=== PATIENT | female | born 1965 | race Caucasian/White ===

== ENCOUNTER 2017-07-30 11:06 | Emergency (ER) | payer BC, OTHER ==
[~2017-07-30] VITALS: Ht 162.6 cm; Wt 79.2 kg
[~2017-07-30 11:06] MED LIST: ALPR-475 PO; ASPI81TA50 PO; CALC1CAP8 PO; ESCI20TA10 PO; FISH1CAP PO; LEVO112T4 PO; MECO10002 PO; OXYC5CAP2 PO
[2017-07-30 11:14] VITALS: BP 129/85
[2017-07-30] MEDS ORDERED: MICROFIBRILLAR COLLAGEN 1 GM TP ONE (11:42)
[2017-07-30] MEDS ORDERED: HYDROcodone/APAP 5/325 TABLET ONE (11:51)
[2017-07-30] MEDS ORDERED: HYDROcodone/APAP 5/325 TABLET PO ONE (12:00)
[2017-07-30] MEDS ORDERED: MICROFIBRILLAR COLLAGEN 0.5GM/PACK TP ONE (12:00)
== END 2017-07-30 12:44 | disposition home or self-care (01) ==
LOC: ED 12:30
DX: S61.215A Laceration without foreign body of left ring finger without damage to nail, initial encounter (principal); F17.200 Nicotine dependence, unspecified, uncomplicated; W26.0XXA Contact with knife, initial encounter; Y93.89 Activity, other specified; Y92.89 Other specified places as the place of occurrence of the external cause; Y99.8 Other external cause status
CPT/HCPCS: 99283

== ENCOUNTER 2018-02-12 19:16 | Emergency (ER) | payer BC ==
[~2018-02-12] VITALS: Ht 162.6 cm; Wt 75.0 kg
[2018-02-12] MEDS ORDERED: MORPHINE SULFATE 4 MG/ML, 1ML ONE ×2 (19:51→20:24)
[2018-02-12] MEDS ORDERED: FAMOTIDINE 20 MG/2 ML ONE (19:51)
[2018-02-12] MEDS: MORPHINE SULFATE 4 MG/ML, 1ML IVPush PRN ×2 (19:56→20:27)
[2018-02-12] MEDS ORDERED: OMNIPAQUE 350 MG/ML, 100ML BOTTLE ONE (20:00)
[2018-02-12] MEDS ORDERED: FAMOTIDINE 20 MG/2 ML IVP ONE (20:00)
[2018-02-12] MEDS ORDERED: SODIUM CHLORIDE FLUSH 10ML SYR IVF ONE (20:00)
[2018-02-12] MEDS ORDERED: ONDANSETRON ODT 4 MG PO ONE (20:00)
[2018-02-12] MEDS ORDERED: ONDANSETRON ODT 4 MG ONE (20:06)
[2018-02-12 20:18] LABS: ALANINE AMINOTRANSFERASE 22 U/L (12-78); ALBUMIN 3.9 g/dL (3.4-5.0); ANION GAP 6 mmol/L (5-15); CALCIUM 8.7 mg/dL (8.5-10.1); CHLORIDE 110 mmol/L (98-107); CREATININE 0.81 mg/dL (0.55-1.02)
[2018-02-12 20:21] LABS: ALKALINE PHOSPHATASE 76 U/L (45-117); BILIRUBIN,TOTAL 0.4 mg/dL (0.2-1.0); TOTAL PROTEIN 7.4 g/dL (6.4-8.2)
[2018-02-12 20:23] LABS: BASOPHILS # (AUTO) 0.05 x10^3/uL (0-0.1); BASOPHILS % (AUTO) 1 % (0-1); EOSINOPHILS # (AUTO) 0.16 x10^3/uL (0-0.4); EOSINOPHILS % (AUTO) 2 % (1-7); LYMPHOCYTES # (AUTO) 2.19 x10^3/uL (1-3.4); LYMPHOCYTES % (AUTO) 25 % (22-44); MD NO; MEAN CORPUSCULAR HEMOGLOBIN 32.5 pg (27.0-34.8); MEAN CORPUSCULAR HGB CONC 34.7 g/dL (32.4-35.8); MEAN CORPUSCULAR VOLUME 93.5 fL (80-100); MONOCYTES % (AUTO) 8 % (2-9); NEUTROPHILS # (AUTO) 5.77 x10^3/uL (1.8-6.8); NEUTROPHILS % (AUTO) 65 % (42-75); PLATELET COUNT 281 x10^3/uL (130-400); RED BLOOD COUNT 4.52 x10^6/uL (3.82-5.3)
[2018-02-12 20:23] LABS: CULTURE INDICATED? YES; MICROSCOPIC INDICATED
[2018-02-12] MEDS ORDERED: CEFTRIAXONE PMX 1GM/50ML 50 ML ONE (21:07)
[2018-02-12 21:12] VITALS: BP 120/71
[2018-02-12] MEDS ORDERED: CEFTRIAXONE 1,000 MG IV ONE (21:30)
== END 2018-02-12 21:34 | disposition home or self-care (01) ==
LOC: ED 20:01
DX: N30.00 Acute cystitis without hematuria (principal)
CPT/HCPCS: 36415; 74177; 80053; 81001; 83690; 85025; 87086; 96365; 96375; 96376; 99285; J0696; Q0162; Q9967; S0028; 87186

== ENCOUNTER 2018-12-05 16:05 | Outpatient (CLI) | payer BC | END 2018-12-05 23:59 | disposition home or self-care (01) | LOC: STAR 16:05 | PROVIDERS: ATTEND Neurological Surgery | DX: Z01.818 Encounter for other preprocedural examination (principal); M47.812 Spondylosis without myelopathy or radiculopathy, cervical region | CPT/HCPCS: 36415; 71046; 80053; 81001; 85025; 85610; 85730; 87086; 93005 ==

== ENCOUNTER 2019-07-22 14:07 | Emergency (ER) | payer BC, OTHER ==
[~2019-07-22] VITALS: Ht 162.6 cm; Wt 63.2 kg
[~2019-07-22 14:07] MED LIST changes: -ALPR-475 PO; +ALPR0.5T7 PO; +CYCL5TAB PO; +HYDR-36 PO; +IBAN3DIS2 INJ; +TIZA2CAP2 PO
[2019-07-22] MEDS ORDERED: LIDOCAINE-MPF 1%, 5ML ONE (14:39)
--- NOTE | 2019-07-22 14:55 | NUR ---
REPORT TO ARNAUD GARZA.
[2019-07-22] MEDS ORDERED: LIDOCAINE-MPF 1%, 5ML INFIL ONE (15:00)
--- NOTE | 2019-07-22 15:00 | NUR ---
REPORT FROM ARNAUD GRANT. AWAITING LAC REPAIR.
[2019-07-22] MEDS ORDERED: ACETAMINOPHEN 325 MG TABLET ONE (15:08)
[2019-07-22] MEDS ORDERED: ACETAMINOPHEN 325 MG TABLET PO ONE (15:30)
--- NOTE | 2019-07-22 15:47 | NUR ---
PT AMBULATES WELL TO BATHROOM INDEPENDENTLY.
[2019-07-22] MEDS ORDERED: NEOSPORIN OINT. PKT 1 PACKET ONE (16:01)
[2019-07-22] MEDS ORDERED: DIPH,PERTUSS(ACELL),TET VAC/PF 0.5 ML IM-VACC ONE (16:01)
[2019-07-22 16:08] VITALS: BP 119/81
== END 2019-07-22 16:11 | disposition home or self-care (01) ==
LOC: ED 15:00
DX: S01.111A Laceration without foreign body of right eyelid and periocular area, initial encounter (principal); S09.90XA Unspecified injury of head, initial encounter; X58.XXXA Exposure to other specified factors, initial encounter; Y93.89 Activity, other specified; Y92.098 Other place in other non-institutional residence as the place of occurrence of the external cause; Y99.8 Other external cause status
CPT/HCPCS: 12011; 99283

== ENCOUNTER 2019-12-20 19:32 | Emergency (ER) | payer BC, OTHER ==
[~2019-12-20] VITALS: Ht 162.6 cm; Wt 64.0 kg
[~2019-12-20 19:32] MED LIST changes: +HYDR-3246 PO; -HYDR-36 PO
[2019-12-20 20:30] LABS: MICROSCOPIC NOT IND
[2019-12-20] MEDS ORDERED: MORPHINE SULFATE 4 MG/ML, 1ML ONE (20:45)
[2019-12-20] MEDS ORDERED: ONDANSETRON 2MG/ML, 2ML ONE (20:45)
[2019-12-20] MEDS ORDERED: SODIUM CHLORIDE FLUSH 10ML SYR IVF ONE (21:00)
[2019-12-20] MEDS ORDERED: ONDANSETRON 2MG/ML, 2ML IVPush ONE (21:00)
[2019-12-20] MEDS ORDERED: MORPHINE SULFATE 4 MG/ML, 1ML IVPush PRN (21:00)
[2019-12-20 21:04] LABS: BASOPHILS # (AUTO) 0.04 x10^3/uL (0-0.1); BASOPHILS % (AUTO) 1 % (0-1); EOSINOPHILS # (AUTO) 0.09 x10^3/uL (0-0.4); EOSINOPHILS % (AUTO) 2 % (1-7); LYMPHOCYTES # (AUTO) 1.81 x10^3/uL (1-3.4); LYMPHOCYTES % (AUTO) 35 % (22-44); MD NO; MEAN CORPUSCULAR HEMOGLOBIN 32.4 pg (27.0-34.8); MEAN CORPUSCULAR HGB CONC 33.8 g/dL (32.4-35.8); MEAN PLATELET VOLUME 8.5 fL (7.4-10.4); MONOCYTES # (AUTO) 0.44 x10^3/uL (0.2-0.8); MONOCYTES % (AUTO) 9 % (2-9); NEUTROPHILS # (AUTO) 2.81 x10^3/uL (1.8-6.8); NEUTROPHILS % (AUTO) 54 % (42-75); PLATELET COUNT 219 x10^3/uL (130-400); RED BLOOD COUNT 4.26 x10^6/uL (3.82-5.3); RED CELL DISTRIBUTION WIDTH 12.4 % (9.6-15.2)
[2019-12-20 21:15] LABS: ALANINE AMINOTRANSFERASE 40 U/L (12-78); ALBUMIN 3.7 g/dL (3.4-5.0); ANION GAP 7 mmol/L (5-15); CALCIUM 8.4 mg/dL (8.5-10.1); CHLORIDE 106 mmol/L (98-107); CREATININE 0.67 mg/dL (0.55-1.02)
[2019-12-20 21:18] LABS: ALKALINE PHOSPHATASE 43 U/L (45-117); BILIRUBIN,TOTAL 0.6 mg/dL (0.2-1.0); TOTAL PROTEIN 6.9 g/dL (6.4-8.2)
[2019-12-20 22:15] VITALS: BP 131/78
== END 2019-12-20 22:53 | disposition home or self-care (01) ==
LOC: ED 20:09
DX: R10.31 Right lower quadrant pain (principal); Z86.39 Personal history of other endocrine, nutritional and metabolic disease; Z87.891 Personal history of nicotine dependence
CPT/HCPCS: 36415; 74176; 80053; 81003; 85025; 96374; 96375; 99284; J2270; J2405

== ENCOUNTER 2019-12-28 17:01 | Emergency (ER) | payer BC, OTHER ==
[~2019-12-28] VITALS: Ht 162.6 cm; Wt 64.0 kg
[2019-12-28] MEDS ORDERED: KETOROLAC 30 MG/1 ML ONE (19:56)
[2019-12-28] MEDS ORDERED: ONDANSETRON ODT 4 MG ONE (19:56)
[2019-12-28] MEDS ORDERED: HYDROcodone/APAP 5/325 TABLET ONE (19:56)
[2019-12-28] MEDS ORDERED: ONDANSETRON ODT 4 MG PO ONE (20:00)
[2019-12-28] MEDS ORDERED: HYDROcodone/APAP 5/325 TABLET PO ONE (20:00)
[2019-12-28] MEDS ORDERED: KETOROLAC 30 MG/1 ML IM ONE (20:00)
--- NOTE | 2019-12-28 21:07 | NUR ---
DR PARSONS IS UPDATING [facility]
[2019-12-28] MEDS ORDERED: DEXAMETHASONE 4 MG TABLET ONE (21:28)
[2019-12-28] MEDS ORDERED: DEXAMETHASONE 4 MG TABLET PO ONE (21:30)
[2019-12-28 21:31] VITALS: BP 113/67
== END 2019-12-28 21:55 | disposition home or self-care (01) ==
LOC: ED 19:46
DX: M54.16 Radiculopathy, lumbar region (principal); M54.14 Radiculopathy, thoracic region; M47.9 Spondylosis, unspecified; M54.5 Low back pain; Z87.891 Personal history of nicotine dependence
CPT/HCPCS: 72128; 72131; 96372; 99285; J1885; Q0162

== ENCOUNTER 2020-02-25 02:23 | Emergency (ER) | payer BC, OTHER ==
[~2020-02-25] VITALS: Ht 162.6 cm; Wt 68.6 kg
--- NOTE | 2020-02-25 02:44 | NUR ---
THIS IS A 55 YO F W/ C/O BODYACHES AND SORE THROAT X2 HOURS. PT REPORTS COVID EXPOSURE AT WORK. RESP EVEN AND UNLABORED, NADN. PT RESTING ON GURNEY W/ CALL LIGHT IN REACH AND SIDE RAILS UPX2. AWAITING ED EVAL.
[2020-02-25 03:24] VITALS: BP 122/75
--- NOTE | 2020-02-25 03:33 | NUR ---
Patient given discharge instructions and they have confirmed that they understand the instructions. Patient ambulatory with steady gait.
== END 2020-02-25 03:34 | disposition home or self-care (01) ==
LOC: ED 03:16
DX: J02.8 Acute pharyngitis due to other specified organisms (principal); B97.89 Other viral agents as the cause of diseases classified elsewhere; Z20.828 Contact with and (suspected) exposure to other viral communicable diseases; R51.9 Headache, unspecified
CPT/HCPCS: 36415; 87081; 87635; 87880; 99283

== ENCOUNTER 2020-05-14 15:26 | Outpatient (CLI) | payer BC, OTHER | END 2020-05-14 23:59 | disposition home or self-care (01) | LOC: CFH 15:26 | PROVIDERS: ATTEND Registered Nurse | DX: Z12.2 Encounter for screening for malignant neoplasm of respiratory organs (principal); R91.8 Other nonspecific abnormal finding of lung field; K76.89 Other specified diseases of liver; M51.34 Other intervertebral disc degeneration, thoracic region; Z90.49 Acquired absence of other specified parts of digestive tract; Z87.891 Personal history of nicotine dependence | CPT/HCPCS: 71271 ==

== ENCOUNTER 2020-11-06 15:50 | Outpatient (CLI) | payer BC, OTHER ==
[~2020-11-06 15:50] MED LIST changes: -HYDR-3246 PO; +HYDR-3248 PO
== END 2020-11-06 23:59 | disposition home or self-care (01) ==
LOC: CFH 15:50
PROVIDERS: ATTEND Family Medicine
DX: Z12.2 Encounter for screening for malignant neoplasm of respiratory organs (principal); R91.8 Other nonspecific abnormal finding of lung field; K76.89 Other specified diseases of liver; Z87.891 Personal history of nicotine dependence
CPT/HCPCS: 71271